=== PATIENT | male | born 1960 | race Caucasian/White ===

== ENCOUNTER → 2016-11-19 | Outpatient (CLI) | payer MEDICARE ==
[~2016-11-19] MED LIST: ASPIRIN325 MG PO; HYDRALAZINE HCL50 MG PO; LORTAB 5-325 M1 EACH PO; NEURONTIN 300300 MG PO; PROVENTIL HFA6.7 GM INH; RAMIPRIL10 MG PO; SYNTHROID150 MCG PO; VENTOLIN/PROVE0.5 ML INH; VITAMIN B-121000 MC1 PO; VITAMIN C 250250 MG PO
== END ==
LOC: KOH-I 10-06 13:30
DX: J32.8 Other chronic sinusitis (principal)
CPT/HCPCS: 70486

== ENCOUNTER 2020-10-08 02:09 | Emergency (ER) | payer MEDICARE ==
[~2020-10-08 02:09] MED LIST changes: +GLUCOPHAGE 500500 MG PO; +NORCO 5-325 TA1 EACH PO
[2020-10-08 04:44] LABS: HEMOGLOBIN 15.4 gm/dl (14.0-17.5); RED BLOOD COUNT 5.15 M/UL (4.20-5.50); WHITE BLOOD COUNT 26.7 K/UL (4.5-11.0)
[2020-10-08] MEDS ORDERED: HYDROXYZINE HCL25 MG PO (09:46)
== END 2020-10-08 10:35 | disposition home or self-care (01) ==
LOC: ER1 02:09
PROVIDERS: Emergency Medicine
DX: L50.9 Urticaria, unspecified (principal); J45.909 Unspecified asthma, uncomplicated; E11.9 Type 2 diabetes mellitus without complications; D72.829 Elevated white blood cell count, unspecified; N28.9 Disorder of kidney and ureter, unspecified; Z88.1 Allergy status to other antibiotic agents; Z88.8 Allergy status to other drugs, medicaments and biological substances
CPT/HCPCS: 71045; 80053; 85025; 96365; 96372; 96375; 99283; J0171

== ENCOUNTER → 2020-10-11 | Outpatient (CLI) | payer MEDICARE ==
[~2020-10-11] MED LIST changes: +HYDROXYZINE HCL25 MG PO
== END ==
LOC: WCC 09:00
PROC: 0JBP0ZZ Excision of Left Lower Leg Subcutaneous Tissue and Fascia, Open Approach (ICD-10-PCS; principal; 2020-10-11)
DX: E11.628 Type 2 diabetes mellitus with other skin complications (principal); L03.116 Cellulitis of left lower limb; I10 Essential (primary) hypertension; E66.01 Morbid (severe) obesity due to excess calories; E11.40 Type 2 diabetes mellitus with diabetic neuropathy, unspecified; L24.9 Irritant contact dermatitis, unspecified cause; Z88.1 Allergy status to other antibiotic agents; Z79.899 Other long term (current) drug therapy
CPT/HCPCS: G0463

== ENCOUNTER → 2020-10-25 | Outpatient (CLI) | payer MEDICARE | LOC: WCC 10:00 | PROC: 0JBP0ZZ Excision of Left Lower Leg Subcutaneous Tissue and Fascia, Open Approach (ICD-10-PCS; principal; 2020-10-25) | DX: E11.628 Type 2 diabetes mellitus with other skin complications (principal); L03.116 Cellulitis of left lower limb; E11.52 Type 2 diabetes mellitus with diabetic peripheral angiopathy with gangrene; I96 Gangrene, not elsewhere classified; E11.622 Type 2 diabetes mellitus with other skin ulcer; L97.822 Non-pressure chronic ulcer of other part of left lower leg with fat layer exposed; E11.40 Type 2 diabetes mellitus with diabetic neuropathy, unspecified; L24.9 Irritant contact dermatitis, unspecified cause; I10 Essential (primary) hypertension; E11.36 Type 2 diabetes mellitus with diabetic cataract; H26.9 Unspecified cataract; J45.909 Unspecified asthma, uncomplicated; E66.01 Morbid (severe) obesity due to excess calories; Z68.41 Body mass index [BMI] 40.0-44.9, adult; Z79.2 Long term (current) use of antibiotics; Z79.84 Long term (current) use of oral hypoglycemic drugs; Z79.899 Other long term (current) drug therapy; Z88.1 Allergy status to other antibiotic agents | CPT/HCPCS: 87070; 87077; 87186; 87205 ==

== ENCOUNTER → 2020-11-15 | Outpatient (CLI) | payer MEDICARE | LOC: WCC 09:00 | DX: T81.89XD Other complications of procedures, not elsewhere classified, subsequent encounter (principal); I10 Essential (primary) hypertension; E11.628 Type 2 diabetes mellitus with other skin complications; E11.40 Type 2 diabetes mellitus with diabetic neuropathy, unspecified; E66.01 Morbid (severe) obesity due to excess calories; L03.116 Cellulitis of left lower limb; L24.9 Irritant contact dermatitis, unspecified cause | CPT/HCPCS: G0463 ==

== ENCOUNTER → 2020-11-26 | Outpatient (CLI) | payer MEDICARE | LOC: HEART 5 11-21 13:30 | DX: E11.628 Type 2 diabetes mellitus with other skin complications (principal); R94.8 Abnormal results of function studies of other organs and systems; I87.2 Venous insufficiency (chronic) (peripheral) | CPT/HCPCS: 93970 ==

== ENCOUNTER → 2020-11-27 | Outpatient (CLI) | payer MEDICARE | LOC: HEART CORB 08:30 | DX: I10 Essential (primary) hypertension (principal); R07.2 Precordial pain; R06.02 Shortness of breath; I37.1 Nonrheumatic pulmonary valve insufficiency; R93.89 Abnormal findings on diagnostic imaging of other specified body structures; R93.1 Abnormal findings on diagnostic imaging of heart and coronary circulation | CPT/HCPCS: 78452; 93306; A9502; J2785 ==

== ENCOUNTER → 2021-02-06 | Outpatient (CLI) | payer MEDICARE | LOC: CT 13:23 | DX: C83.00 Small cell B-cell lymphoma, unspecified site (principal); D64.9 Anemia, unspecified; D69.6 Thrombocytopenia, unspecified; R16.1 Splenomegaly, not elsewhere classified; R59.9 Enlarged lymph nodes, unspecified; N32.89 Other specified disorders of bladder | CPT/HCPCS: 36415; 71260; 82565; Q9967 ==

== ENCOUNTER → 2021-02-13 | Outpatient (CLI) | payer MEDICARE | LOC: EXRD 11:07 | DX: M25.562 Pain in left knee (principal) | CPT/HCPCS: 73560 ==